=== PATIENT | male | born 1950 | race Caucasian/White ===

== ENCOUNTER 2023-12-18 09:41 | Emergency (ER) | payer BC | END 2023-12-18 10:39 | disposition home or self-care (01) | LOC: JP.ED 09:41 | DX: R21 Rash and other nonspecific skin eruption (principal); I48.91 Unspecified atrial fibrillation; E78.00 Pure hypercholesterolemia, unspecified; Z79.01 Long term (current) use of anticoagulants; Z79.899 Other long term (current) drug therapy; Z86.19 Personal history of other infectious and parasitic diseases; Z86.16 Personal history of COVID-19 | CPT/HCPCS: 99282; 99283 ==